=== PATIENT | female | born 1985 | race Caucasian/White ===

== ENCOUNTER 2023-08-25 21:17 | Emergency (ER) | payer MEDICAID ==
[~2023-08-25] VITALS: Ht 167.6 cm; Wt 45.4 kg
[2023-08-25 21:22] VITALS: BP 129/95; PULSE 129; RESP 16; TEMP 97.4; O2SAT 100
[2023-08-25 22:01] LABS: FLU A ANTIGEN negative (NEGATIVE)
[2023-08-25 22:02] LABS: FLU B ANTIGEN NEGATIVE (NEGATIVE)
[2023-08-25] MEDS ORDERED: NACL 0.9% 1,000 ML IV ONE (22:10)
[2023-08-25] MEDS ORDERED: KETOROLAC 30 MG/ML VIAL IVP ONE (22:10)
[2023-08-25] MEDS ORDERED: MORPHINE SULFATE 4 MG/ML SYR IVP ONE (22:25)
[2023-08-25 22:31] VITALS: TEMP 100.2
[2023-08-25 22:46] VITALS: O2SAT 100
[2023-08-25 22:57] LABS: BASOPHILS # (AUTO) 0.1 K/uL (0.00-0.22); BASOPHILS % (AUTO) 0.7 % (0.0-2.0); EOSINOPHILS % (AUTO) 0.3 % (0.0-4.0); HEMATOCRIT 41.1 % (36-48); HEMOGLOBIN 14.3 g/dL (12.0-16.0); LYMPHOCYTES # (AUTO) 1.2 K/uL (2.5-16.5); LYMPHOCYTES % (AUTO) 10.5 % (20.5-51.1); MEAN CORPUSCULAR HEMOGLOBIN 30 pg (27-31); MEAN CORPUSCULAR HGB CONC 35 g/dL (33-37); MEAN CORPUSCULAR VOLUME 86.3 fL (80-94); MONOCYTES # (AUTO) 1.6 K/uL (0.8-1.0); MONOCYTES % (AUTO) 13.8 % (1.7-9.3); NEUTROPHILS # (AUTO) 8.9 K/uL (1.8-7.7); NEUTROPHILS % (AUTO) 74.7 % (42.2-75.2); PLATELET COUNT (AUTO) 322 K/uL (140-450); RED BLOOD CELL COUNT(AUTO) 4.76 MIL/uL (4.20-5.40); RED CELL DISTRIBUTION WIDTH 13.2 % (11.6-13.7); WHITE BLOOD COUNT (AUTO) 11.8 K/uL (4.8-10.8)
[2023-08-25 23:12] LABS: ANION GAP 16.2 (8-16); CALCIUM 9.1 mg/dL (8.5-10.1); CARBON DIOXIDE 23.1 mmol/L (21-32); CREATININE 0.9 mg/dL (0.6-1.3); POTASSIUM 3.3 mmol/L (3.5-5.1)
[2023-08-26 00:14] VITALS: BP 141/99; PULSE 108; RESP 19; O2SAT 100
== END 2023-08-26 00:15 | disposition home or self-care (01) ==
LOC: MED 21:17
DX: M79.18 Myalgia, other site (principal); R05.9 Cough, unspecified; R07.9 Chest pain, unspecified; Z20.822 Contact with and (suspected) exposure to COVID-19; F14.90 Cocaine use, unspecified, uncomplicated; F11.90 Opioid use, unspecified, uncomplicated; F15.90 Other stimulant use, unspecified, uncomplicated; Z98.890 Other specified postprocedural states; Z88.8 Allergy status to other drugs, medicaments and biological substances
CPT/HCPCS: 36415; 80048; 81002; 81025; 85025; 87426; 87804; 93005; 99283; J2270; J7030